=== PATIENT | female | born 2000 | race Caucasian/White ===

== ENCOUNTER 2021-02-04 03:26 | Emergency (ER) | payer OTHER, SELFPAY ==
--- NOTE | ~2021-02-04 | XR_ITS ---
XR shoulder LT min 2V DATE: 02/04/2021 04:16 INDICATION: Fall. Left shoulder pain TECHNIQUE: 5 views COMPARISON: None FINDINGS: No fracture or dislocation, periosteal reaction or bone destruction or abnormal soft tissue calcification. IMPRESSION: Negative Reviewed, dictated and finalized at location A. IMPRESSION: Negative
--- NOTE | ~2021-02-04 | XR_ITS ---
XR knee RT 3V DATE: 02/04/2021 04:15 INDICATION: Fall. Patellar pain. TECHNIQUE: 3 views COMPARISON: None FINDINGS: No fracture or dislocation or joint effusion. Joint spaces are preserved. No radiopaque int ra-articular loose body or chondrocalcinosis. No periosteal reaction or bone destruction. IMPRESSION: Negative Reviewed, dictated and finalized at location A. IMPRESSION: Negative
[2021-02-04 03:38] VITALS: BP 138/77; PULSE 103; RESP 17; TEMP 36.4; O2SAT 100
--- NOTE | 2021-02-04 04:58 | ED.FALL ---
HPI - Fall General Chief Complaint: Fall Stated Complaint: shoulder and knee injury Time Seen by Provider: 02/04/21 03:31 Source: patient History of Present Illness HPI Narrative: Patient presents with left shoulder pain and right knee pain. Patient reports she is picking her up her friends from a bar when she slipped on the wet surface inside the barn she landed on her left arm and right knee. She denies striking her head she denies any loss of consciousness denies any use of blood thinners. Reports pain to her left shoulder and her right knee as areas of pain are achy, constant, worse with using the respective joint. Her shoulder pain does radiate to her her knee pain does not Review of Systems Review of Systems: CONSTITUTIONAL: Denies fever, chills, or sweats. EYES: Denies visual changes, redness, or discharge. ENT: Denies rhinorrhea, congestion, sore throat, or otalgia. CARDIOVASCULAR: Denies chest pain, palpitations, or edema. RESPIRATORY: Denies cough or dyspnea. GASTROINTESTINAL: Denies abdominal pain, nausea, vomiting, or diarrhea. GENITOURINARY: Denies dysuria or hematuria. SKIN: Denies rash or itching. MUSCULOSKELETAL: Denies back pain, or myalgia. NEUROLOGIC: Denies headache, numbness, dizziness, or weakness. PSYCHIATRIC: Denies anxiety or depression. All systems reviewed & are unremarkable except as noted in HPI and below Exam Narrative: GENERAL: Well-appearing, well-nourished, and in no acute distress. HEAD: Normocephalic, atraumatic. EYES: PERRLA and EOMI. ENT: Nares clear, no rhinorrhea or epistaxis. Mucous membranes moist. NECK: Supple. No masses. No JVD no midline neck pain EXTREMITIES: Noted shoulder range of motion in all directions related to pain. Left shoulder has diffuse pain to the joint there is no focal bony tenderness there is no specific tenderness at the AC joint. Patient has less than 2-second cap refill, 5 out of 5 generator repairer strength, sensation intact to light touch in the left hand. Right knee is with tenderness primarily on the kneecap there is no obvious deformity there is no laxity in the knee joint. SKIN: Warm, dry, no rash. NEURO: No focal deficits. Alert and oriented x3. PSYCH: Normal mood and affect. Course Reevaluation(s) Reevaluation #1: Patient resting comfortably imaging reviewed with patient. Patient with outpatient plan. Date: 02/04/21 Vital Signs Vital signs: Vital Signs Temperature 36.4 C 02/04/21 03:38 Pulse Rate 103 H 02/04/21 03:38 Respiratory Rate 17 02/04/21 03:38 Blood Pressure 138/77 02/04/21 03:38 Pulse Oximetry 100 02/04/21 03:38 Temperature 36.4 C 02/04/21 03:38 Pulse Rate 93 02/04/21 05:08 Respiratory Rate 18 02/04/21 05:08 Blood Pressure 111/61 02/04/21 05:08 Pulse Oximetry 99 02/04/21 05:08 MDM - Fall MDM Narrative Medical decision making narrative: H&P as above, vss, pt looks clinically well, exam without major neurovascular compromise or focal bony tenderness, imaging unremarkable, additional labs/img considered. symptomatic relief available as needed, on reevaluation pt continues to looks clinically well. Suspect acute injury, dns fracture, dislocation, major neurovascular compromise. plan to tx/monitor as op w/ pcm f/u findings/plan discussed with pt, pt agree/comfortable with plan, return precautions given Imaging Data Attestation: I personally reviewed and interpreted this imaging study as follows: My impression: No focal bony abnormalities in the left shoulder or right knee plain films Discharge Plan Discharge Clinical Impression: Fall Qualifiers: Encounter type: initial encounter Qualified Code(s): W19.XXXA - Unspecified fall, initial encounter Acute shoulder pain Qualifiers: Laterality: left Qualified Code(s): M25.512 - Pain in left shoulder Acute knee pain Qualifiers: Laterality: left Qualified Code(s): M25.562 - Pain in left knee Contusion Qualifiers: Encounter type: initial encounter Contusion area: knee L
[2021-02-04 05:08] VITALS: BP 111/61; PULSE 93; RESP 18; O2SAT 99
== END 2021-02-04 05:42 | disposition home or self-care (01) ==
LOC: ANHED 05:14
PROVIDERS: Emergency Provider Emergency Medicine
DX: S80.01XA Contusion of right knee, initial encounter (principal); M25.512 Pain in left shoulder; W01.0XXA Fall on same level from slipping, tripping and stumbling without subsequent striking against object, initial encounter
CPT/HCPCS: 73030; 73562; 99284

== ENCOUNTER 2022-07-31 23:11 | Emergency (ER) | payer OTHER, SELFPAY ==
--- NOTE | ~2022-07-31 | XR_ITS ---
EXAMINATION: XR chest 2V DATE: 08/01/2022 00:12 INDICATION: Chest pain and shortness of breath TECHNIQUE: PA and lateral views of the chest are obtained. COMPARISON: None available FINDINGS: The lungs are free of acute opacities. No pleural effusion or pneumothorax. The cardiomedia stinal silhouette is normal. The visualized bones and soft tissues are unremarkable. IMPRESSION: 1. No acute cardiopulmonary abnormality. Reviewed, dictated and finalized at location L.
[2022-07-31 23:27] VITALS: BP 116/68; PULSE 82; RESP 18; TEMP 36.4; O2SAT 98
--- NOTE | 2022-07-31 23:32 | ECG_ITS ---
Measurements Intervals [place] Rate: 76 P: 37 MS: 150 QRS: 27 QRSD: 95 T: 36 QT: 391 QTc: 442 Interpretive Statements SINUS RHYTHM WITH FREQUENT VENTRICULAR PREMATURE COMPLEXES IN A BIGEMINAL PATTERN ABNORMAL RHYTHM ECG NO PREVIOUS ECG AVAILABLE FOR COMPARISON Electronically Signed On 08-01-2022 15:59:47 CDT by Sue Hinson M.D.
[2022-08-01 00:03] LABS: Basophils Percent Auto 0.3 % (0.2-1.2); Hematocrit 39.8 % (37.0-47.0); Hemoglobin 12.3 g/dL (12.0-15.0); Immature Granulocyte Absolute 0.02 K/mm3 (0.00-0.031); Immature Granulocyte Percent A 0.2 % (0-0.5); Lymphocytes Absolute Auto 3.39 K/mm3 (0.9-3.2); Lymphocytes Percent Auto 34.9 % (18.3-44.2); Mean Corpuscular HGB Conc 30.9 g/dl (32-36); Mean Corpuscular Hemoglobin 25.5 pg (26-34); Mean Corpuscular Volume 82.4 fl (80-100); Mean Platelet Volume 10.6 fl (7.4-10.4); Monocytes Absolute Auto 0.7 K/mm3 (0.1-0.6); Monocytes Percent Auto 6.8 % (2.6-8.5); Neutrophils Absolute Auto 5.6 K/mm3 (1.3-6.7); Neutrophils Percent Auto 57.8 % (45.5-73.1); Platelet Count Result 381 k/mm3 (150-375); Red Blood Count 4.83 M/mm3 (4.2-5.4); Red Cell Distribution Width 15.8 % (11.5-14.5); White Blood Count 9.7 K/mm3 (4.5-10.0)
[2022-08-01 00:18] LABS: Alanine Aminotransferase 23 U/L (6-35); Albumin Level 4.3 g/dL (3.5-5.1); Alkaline Phosphatase 71 U/L (38-126); Anion Gap 6 mmol/L (8-16); Aspartate Amino Transferase 23 U/L (14-36); Bilirubin,Total 0.3 mg/dL (0.2-1.3); Blood Urea Nitrogen 13 mg/dL (7-17); Carbon Dioxide 28 mmol/L (22-30); Chloride 105 mmol/L (98-107); Estimated Glomerular Filt Rate > 60; Glucose 124 mg/dL (65-110); Lipase 79 U/L (23-300); Potassium 4.2 mmol/L (3.4-5.0); Sodium 139 mmol/L (137-145)
[2022-08-01 00:23] LABS: INR 1.1; Prothrombin Time 13.4 Seconds (11.1-14.7)
[2022-08-01 00:30] LABS: Troponin I < 0.012 ng/mL (0.000-0.034)
[2022-08-01 02:46] LABS: Appearance Urine Clear (Clear); Bacteria Urine None Seen /hpf; Bilirubin Urine Negative (Negative); Blood Urine 3+ (Negative); Color Urine Yellow (Yellow); Glucose Urine UA Negative (Negative); Ketones Urine Negative (Negative); Leukocyte Esterase Ur Negative LEU/UL (Negative); Nitrate Urine Negative (Negative); Non Pathogenic Casts 0-2; Protein Urine Negative (Negative); Squamous Epithelial Cell Urine None seen /hpf (Few); WBC Urine 0-5 /hpf; pH Urine 6.5 (5.0-9.0)
[2022-08-01 02:48] LABS: Magnesium 2.1 mg/dL (1.6-2.3)
[2022-08-01 02:51] LABS: Add Urine Microscopic? YES
[2022-08-01 03:01] LABS: Troponin I < 0.012 ng/mL (0.000-0.034)
[2022-08-01 04:12] VITALS: BP 137/76; PULSE 84; RESP 18; O2SAT 100
--- NOTE | 2022-08-01 06:49 | PC.NURSE ---
pt brought back to room #11. Gait steady. Changing into a gown
[2022-08-01 06:59] VITALS: BP 102/60; PULSE 77; RESP 20; O2SAT 100
[2022-08-01 07:00] VITALS: PULSE 76
[2022-08-01 07:31] VITALS: BP 112/72; PULSE 79; RESP 22; O2SAT 100
[2022-08-01 08:30] VITALS: BP 110/70; PULSE 75; RESP 27; O2SAT 96
[2022-08-01 08:36] LABS: D Dimer < 0.27 ug/mL (<0.48)
[2022-08-01 08:45] LABS: Troponin I < 0.012 ng/mL (0.000-0.034)
--- NOTE | 2022-08-01 08:57 | ED.CHESTPAIN ---
HPI - Chest Pain General Chief Complaint: Chest Pain Stated Complaint: chest pain Time Seen by Provider: 08/01/22 07:01 Source: patient and RN notes reviewed Mode of arrival: ambulatory Limitations: no limitations History of Present Illness HPI narrative: This is a 21 year old female with history of myocarditis, frequent PVCs who presents for evaluation of chest pain. She reports yesterday she started having intermittent sharp pain and feeling like she was having PVCs. She also reports feeling short of breath with these episodes. She called her clinical program coordinator and recommended coming to ER. She is taking metoprolol and diltiazem for known episodes of PVCs and Bigeminy . She is scheduled for cardiac ablation for her PVC this month. She denies cough, fever, nausea, vomiting. She denies leg swelling or calf pain. She reports having these issues since last November. She had CT Scan of chest in january and MRI of her heart. Review of Systems Constitutional: Constitutional: Denies weakness Cardiovascular: Cardiovascular: Reports chest pain, Denies syncope, Denies rapid heart rate, Reports irregular heart rhythm, Denies leg edema and Reports dyspnea Respiratory: Respiratory: Denies chest congestion, Denies hemoptysis, Denies excessive phlegm production and Denies dyspnea Gastrointestinal: Gastrointestinal: Denies abdominal pain, Denies hematochezia, Denies diarrhea and Denies vomiting Genitourinary: Genitourinary: Denies hematuria and Denies dysuria Musculoskeletal: Musculoskeletal: Denies joint swelling, Denies loss of height and Denies muscle weakness Neurologic: Denies syncope, Denies focal weakness and Denies weakness PMFSH Past Medical History Medical History (Updated 08/01/22 @ 09:09 by Rosa Burns MD) Myocarditis PVC (premature ventricular contraction) Social History Social History (Updated 08/01/22 @ 09:02 by Rosa Burns MD) Smoking status: Never smoker Exam Narrative: GENERAL: Well-appearing, well-nourished, and in no acute distress. HEAD: Normocephalic, atraumatic EYES: PERRLA and EOMI, conjunctiva clear without discharge THROAT:Mucous membranes moist, Oropharynx normal without erythema, exudate, peritonsillar swelling or fluctuance NECK: Supple, without lymphadenopathy or mass RESPIRATORY: No respiratory distress, Airway patent, Respirations non-labored, Clear to auscultation without rales, rhonchi or wheeze HEART: Regular rate and rhythm. No murmur heard. Normal peripheral pulses. ABDOMEN: Soft, nontender, nondistended, normal active bowel sounds. No masses. No rebound or guarding, No organomegaly. EXTREMITIES: No edema, normal strength with full range of motion. SKIN: Warm, dry, normal color without rash NEURO: Alert and oriented x3. CN 2-12 grossly intact. No focal deficits. PSYCH: Normal mood and affect. Chest: Chest palpation & inspection: tenderness sternum Neuro: Speech: No Abnormal speech present Course Reevaluation(s) Reevaluation #1: I discussed with patient that troponin and d dimer is negative. She is having PVCs, no VTach seen on monitor. She will follow up with clinical program coordinator Date: 08/01/22 Time: 09:04 Vital Signs Vital signs: Vital Signs Temperature 97.6 F 07/31/22 23:27 Pulse Rate 82 07/31/22 23:27 Respiratory Rate 18 07/31/22 23:27 Blood Pressure 116/68 07/31/22 23:27 Pulse Oximetry 98 07/31/22 23:27 Temperature 97.6 F 07/31/22 23:27 Pulse Rate 74 08/01/22 09:16 Respiratory Rate 16 08/01/22 09:16 Blood Pressure 110/80 08/01/22 09:16 Pulse Oximetry 96 08/01/22 09:16 MDM - Chest Pain MDM Narrative Medical decision making narrative: Patient has known bigeminy .on arrival she had bigeminy but now seems to be having infrequent PVCs. labs unnremarkable other than UA with microscopic hematuria that is unrelated, troponin negative x 2, electrolytes normal. d dimer negative She is stable for outpatient follow up. D
[2022-08-01 09:16] VITALS: BP 110/80; PULSE 74; RESP 16; O2SAT 96
== END 2022-08-01 09:16 | disposition home or self-care (01) ==
PROVIDERS: Emergency Medicine; Emergency Provider General Practice; PCP Family Medicine Sports Medicine
DX: R07.89 Other chest pain (principal); I49.3 Ventricular premature depolarization
CPT/HCPCS: 36415; 71046; 80053; 81001; 83690; 83735; 84484; 85025; 85380; 85610; 85730; 93005; 99284

== ENCOUNTER 2022-12-04 15:16 | Outpatient (CLI) | payer OTHER, SELFPAY ==
--- NOTE | ~2022-12-04 | US_ITS ---
EXAMINATION: US breast RT limited HISTORY: Palpable lump in the upper inner quadrant of the right breast TECHNIQUE: Limited right breast ultrasound performed. FINDINGS: There is no evidence of focal abnormal cystic or solid mass in the vicinity of the reported palpable abnormality of the right breast. IMPRESSION: No specific sonographic correlate is identified for the reported palpable abnormality of concern. Fur ther evaluation at this time should be based on clinical assessment. Continued follow-up physical exa mination is recommended. BI-RADS Category 1: Negative Reviewed, dictated and finalized at location A. IMPRESSION: No specific sonographic correlate is identified for the reported palpable abnor mality of concern. Further evaluation at this time should be based on clinical assessment. Continued follow-up physical examination is recommended. BI-RADS Category 1: Negative
== END 2022-12-04 15:17 | disposition home or self-care (01) ==
LOC: ANHIMG 15:20
DX: N63.12 Unspecified lump in the right breast, upper inner quadrant (principal); Z97.5 Presence of (intrauterine) contraceptive device
CPT/HCPCS: 76642

== ENCOUNTER 2023-03-29 14:21 | Inpatient (IN) | payer OTHER, SELFPAY ==
--- NOTE | ~2023-03-29 | US_ITS ---
EXAMINATION: US retroperitoneal duplex ltd DATE: 04/03/2023 08:57 BOW MAKER GIFT WRAPPING INDICATION: Hypertension TECHNIQUE: Multiple grayscale, color Doppler, and pulsed Doppler images of the kidneys and renal johnnie jordyn were obtained. COMPARISON: None. FINDINGS: The aorta peak systolic velocity is 213 cm/s. The right renal artery peak systolic velocity is 99 cm/ s in the proximal segment, 167 cm/s in the mid segment, 107 cm/s in the distal segment. The left richard l artery peak systolic velocity is 68 cm/s in the proximal segment, 88 cm/s in the mid segment, 68 cm /s in the distal segment. The renal artery/aorta systolic ratio on the right is 0.8 and on the left is 0.4. Notes: renal artery stenosis is >=180-200 cm/s or >3.5:1 ratio of renal artery velocity to aorta. Thi s correlates with >50-60% stenosis. IMPRESSION: 1. No Doppler evidence of renal artery stenosis. Reviewed, dictated and finalized at location D. MAKER GIFT WRAPPING
--- NOTE | ~2023-03-29 | MR_ITS ---
MRI of the thoracic spine Clinical History: Paresthesias Technique: Axial T2-weighted and gradient images, and sagittal T1-weighted, T2-weighted, and STIR esequiel ges were acquired. Following intravenous administration of 20 cc MultiHance gadolinium, T1-weighted f at-sat imaging was performed in the axial and sagittal planes. Findings: There is no fracture or subluxation of the thoracic spine. Vertebral bodies maintain normal height and alignment. No focal bone marrow signal abnormality seen. Intervertebral discs are well preserved throughout the thoracic spine. No disc bulge or herniation se en at any level. No spinal canal stenosis or cord compression identified. No epidural mass or collect ion seen. No abnormal signal seen in the spinal cord. Paravertebral soft tissues are unremarkable. No abnormal postcontrast enhancement identified. Impression: Unremarkable exam. Reviewed, dictated and finalized at [facility]. LE TREE STITCHER Impression: Unremarkable exam.
--- NOTE | ~2023-03-29 | XR_ITS ---
EXAMINATION: XR injection blood patch w img DATE: 04/02/2023 13:03 INDICATION: Postlumbar puncture headache TECHNIQUE: The procedure including the risks and benefits was discussed with the patient. Risks discu ssed included spinal headache, cerebrospinal fluid leak, bleeding, and infection. The patient underst ood the risks and agreed to proceed. A timeout was performed to verify the patient's name, date of , and procedure to be performed. The skin overlying the L2-L3 level was prepped and draped in usual sterile fashion. Subcutaneous 1% lidocaine was used for local anesthesia. A 20 gauge spinal n eedle was advanced under fluoroscopic guidance and with loss of resistance technique. There was no sp ontaneous efflux of CSF fluid. 1 mL of Omnipaque 300 contrast was injected in the frontal fluoroscopi c image and crosstable lateral radiograph were obtained confirming epidural position of the needle ti p with no intrathecal contrast. 8 mL of the patient's own blood was collected from an IV and injected into the epidural space during which time the patient remained asymptomatic. The needle was removed and the entry site was cleaned and dressed. There were no immediate complications. Fluoroscopy exposu re time was 0.2 minutes. A total of 3 fluoroscopic images and one radiograph are obtained. Total DAP was 18 Gycm^2. FINDINGS: Real-time fluoroscopy demonstrates the needle tip and small amount of injected contrast in the epidural space at the L2-L3 level. IMPRESSION: 1. Successful fluoro-guided lumbar blood patch in the epidural space at L2-L3. Reviewed, dictated and finalized at location A. OMER TRAINING SPECIALIST
--- NOTE | ~2023-03-29 | MR_ITS ---
MRI of the brain Clinical History: Headache, vision changes Technique: Axial and sagittal T1-weighted images were acquired. These were followed by axial T2-weigh jeanne, diffusion weighted, gradient, and FLAIR images. Findings: No abnormal signal seen in the brain parenchyma. No acute infarct, intracranial hemorrhage, mass lesion. Ventricles and subarachnoid spaces are unremarkable. Orbits are unremarkable. Paranasal sinuses and m astoid air cells are clear. Major intracranial flow voids appear intact. Sagittal midline structures are intact. IMPRESSION: Unremarkable exam. Reviewed, dictated and finalized at location M. TENER IMPRESSION: Unremarkable exam.
--- NOTE | ~2023-03-29 | MR_ITS ---
MRI of the lumbar spine Clinical History: Paresthesias Technique: Axial T2-weighted images, and sagittal T1-weighted, T2-weighted, and T2 fat-sat images wer e acquired. Following intravenous administration of 20 cc MultiHance gadolinium, T1-weighted fat-sat imaging was performed in the axial and sagittal planes. Findings: There is no fracture or subluxation of the lumbar spine. Vertebral bodies maintain normal h eight and alignment. No focal bone marrow signal abnormality seen. At L1-L2, L2-L3, L3-L4, intervertebral discs maintain normal signal and position. No disc bulge or he rniation at these levels. No spinal canal stenosis or neural foraminal narrowing at these levels. At L4-L5, there is mild central disc protrusion with tiny annular fissure. No spinal canal stenosis o r neural foraminal narrowing. At L5-S1, there is mild central disc protrusion with probable tiny annular fissure. No spinal canal s tenosis or neural foraminal narrowing. Paravertebral soft tissues are unremarkable. No abnormal postcontrast enhancement identified. Impression: Mild degenerative disc change at L4-L5 and L5-S1, as detailed above. Reviewed, dictated and finalized at location . OPERATIONS SUPERVISOR Impression: Mild degenerative disc change at L4-L5 and L5-S1, as detailed above.
--- NOTE | ~2023-03-29 | MR_ITS ---
MR Venogram of the Brain Clinical Indication: Headache, vision changes Technique MR venogram was done using coronal 2D time of flight technique. Findings: The superior sagittal sinus appears normal. Probable flow artifact at the junction of the b ilateral transverse and sigmoid sinuses rather than thrombosis. Bilateral transverse and sigmoid sinu ses are otherwise unremarkable. The internal cerebral veins, vein of Sen and straight sinus are pat ent. Impression: No evidence of venous sinus thrombosis. Reviewed, dictated and finalized at location . BASKET MAKER Impression: No evidence of venous sinus thrombosis.
--- NOTE | ~2023-03-29 | XR_ITS ---
EXAMINATION: XR lumbar puncture diagnostic DATE: 03/30/2023 14:15 INDICATION: Papilledema. TECHNIQUE: The procedure including the risks, benefits, and alternatives was discussed with the patie nt. Risks discussed included spinal headache, bleeding, and infection. The patient understood the ris ks and agreed to proceed. A timeout was performed to verify the patient's name, date of , and procedure to be performed. The skin overlying the L2-L3 level was prepped and draped in usual steri le fashion. Subcutaneous 1% lidocaine was used for local anesthesia. A 20 gauge spinal needle was a dvanced under fluoroscopic guidance. The needle was removed and the entry site was cleaned and dresse d. There were no immediate complications. Fluoroscopy exposure time was 0.1 minutes. The total numbe r of images was 1. FINDINGS: Real-time fluoroscopy demonstrates the needle at the L2-L3 level. The opening pressure was 29 cm water (Normal range is variably defined as 6-20 cm water and up to 25 cm water in obese patient s. Pressure >25 cm water is one of the modified Dandy criteria for idiopathic intracranial hypertensi on). 14 mL of clear, colorless fluid was collected in 4 tubes. IMPRESSION: 1. Successful fluoro-guided lumbar puncture. 2. Elevated opening pressure measuring 29 cm water. Reviewed, dictated and finalized at location A. EL ATTENDANT
--- NOTE | ~2023-03-29 | CT_ITS ---
EXAMINATION: CTA BRAIN/CAROTID DATE: 03/29/2023 18:38 INDICATION: Lytic, vision changes and optic disc swelling TECHNIQUE: Computed tomographic angiography (CTA) of the head and neck was performed with 100 mL Omni paque-350 intravenous contrast. Multiplanar reconstructions and maximum intensity projection 3D-recon structions of the carotid arteries and of the intracranial arteries were created by the technologist on a separate workstation. Precontrast CT of the head was also obtained. Automated exposure control and iterative reconstruction technique were employed.The dose-length product was 1832.13 mGy-cm. COMPARISON: None. FINDINGS: Carotid arteries: Visualized aortic arch and great vessels arising from the arch are normal in caliber with no evident atherosclerotic plaque or dissection. Left vertebral artery is dominant. There is no evident atherosc lerotic plaque with 0% stenosis of the right and left carotid bulbs relative to normal distal artery lumen diameter (NASCET criteria). Cervical soft tissues are unremarkable. Likely positional mild reve rsal of the normal cervical lordosis. Head: No acute intracranial hemorrhage, acute infarction or abnormal extra axial fluid collection. Ventricl es are normal and symmetric. No mass/mass effect. The orbits, paranasal sinuses and mastoid air cells are normal. No abnormally enhancing brain lesions on postcontrast imaging. Intracranial arteries There is no hemodynamically significant stenosis in the vertebral, basilar and internal carotid arter ies. Left vertebral artery is dominant. There are no aneurysms identified. Both A1 and P1 segments a re patent. There is also a patent anterior communicating artery and bilateral posterior communicating arteries. Cerebral arterial arborization appears symmetric. IMPRESSION: 1. No evident atherosclerotic plaque with 0% stenosis of the right and left carotid bulbs relative to normal distal artery lumen diameter (NASCET criteria). 2. Normal brain and CT angiogram of the cerebral arteries. Reviewed, dictated and finalized at location A. N MARKETING SPECIALIST IMPRESSION: 1. No evident atherosclerotic plaque with 0% stenosis of the right and left car otid bulbs relative to normal distal artery lumen diameter (NASCET criteria). 2. Normal brain and CT angiogram of the cerebral arteries.
[2023-03-29 14:31] VITALS: BP 143/99; PULSE 100; RESP 16; TEMP 36.9; O2SAT 100
[2023-03-29 17:58] LABS: Basophils Percent Auto 0.3 % (0.2-1.2); Hematocrit 37.6 % (37.0-47.0); Hemoglobin 10.9 g/dL (12.0-15.0); Immature Granulocyte Absolute 0.04 K/mm3 (0.00-0.031); Immature Granulocyte Percent A 0.4 % (0-0.5); Lymphocytes Absolute Auto 2.77 K/mm3 (0.9-3.2); Lymphocytes Percent Auto 26.9 % (18.3-44.2); Mean Corpuscular Hemoglobin 22.7 pg (26-34); Mean Corpuscular Volume 78.3 fl (80-100); Mean Platelet Volume 10.8 fl (7.4-10.4); Monocytes Absolute Auto 0.8 K/mm3 (0.1-0.6); Monocytes Percent Auto 7.8 % (2.6-8.5); Neutrophils Absolute Auto 6.6 K/mm3 (1.3-6.7); Neutrophils Percent Auto 64.6 % (45.5-73.1); Platelet Count Result 489 k/mm3 (150-375); Red Cell Distribution Width 14.6 % (11.5-14.5); White Blood Count 10.3 K/mm3 (4.5-10.0)
[2023-03-29 18:10] LABS: Alanine Aminotransferase 48 U/L (6-35); Albumin Level 4.3 g/dL (3.5-5.1); Alkaline Phosphatase 80 U/L (38-126); Anion Gap 11 mmol/L (8-16); Aspartate Amino Transferase 42 U/L (14-36); Bilirubin,Total 0.3 mg/dL (0.2-1.3); Blood Urea Nitrogen 10 mg/dL (7-17); Calcium 9.3 mg/dL (8.4-10.2); Carbon Dioxide 25 mmol/L (22-30); Chloride 104 mmol/L (98-107); Estimated CRCL calculation 160 ml/min; Estimated Glomerular Filt Rate > 60; Glucose 96 mg/dL (65-110); Potassium 4.1 mmol/L (3.4-5.0); Sodium 140 mmol/L (137-145)
[2023-03-29 18:24] LABS: Hypochromasia 1+ (NORMAL); Ovalocytes 1+ (NORMAL); Platelet Estimate Increased (Adequate); Schistocytes None Seen (NORMAL)
--- NOTE | 2023-03-29 18:28 | ED.NEUROSD ---
HPI - Neuro Symptoms/Deficit General Chief Complaint: Neuro Symptoms/Deficit Stated Complaint: VISUAL CHANGES X3WKS Time Seen by Provider: 03/29/23 17:02 Source: patient Mode of arrival: ambulatory Limitations: no limitations History of Present Illness HPI Narrative: Patient is a 22 y/o female who presents to the ED with c/o vision changes. Patient reports having intermittent vision changes over the last 3 weeks. She describes it as though her vision is tunneling and out. She at times experiences headaches/pressure and tinnitus with the vision changes. She states symptoms have become progressively more frequent each day. Occurring multiple times per hour. She has seen her lithographic artist in her hometown and was told she had swelling of her optic nerve. She was referred to have a CT scan of her brain and carotids, but was unable to schedule this for 2 more weeks. Patient reports ongoing vision changes throughout my evaluation. Denies numbness or weakness in extremities, confusion, slurred speech, dizziness, lightheadedness. Related Data Home Medications Medication Instructions Recorded Confirmed diltiazem HCl 60 mg tablet 60 mg PO BID 03/29/23 03/29/23 escitalopram oxalate 10 mg tablet 10 mg PO DAILY 03/29/23 03/29/23 (Lexapro) itraconazole 100 mg capsule 100 mg PO DAILY 03/29/23 03/29/23 itraconazole 200 mg tablet 200 mg PO BID 03/29/23 03/29/23 metoprolol succinate 50 mg 50 mg PO BID 03/29/23 03/29/23 tablet,extended release 24 hr Allergies Allergy/AdvReac Type Severity Reaction Status Date / Time No Known Allergies Allergy Verified 03/30/23 02:01 Review of Systems Review of Systems: CONSTITUTIONAL: Denies fever, chills, or sweats. EENT: See HPI. CARDIOVASCULAR: Denies chest pain, palpitations, or edema. RESPIRATORY: Denies cough or dyspnea. GASTROINTESTINAL: Denies abdominal pain, nausea, vomiting. MUSCULOSKELETAL: Denies back pain, joint pain, or myalgia. NEUROLOGIC: See HPI. All systems reviewed & are unremarkable except as noted in HPI and below PMFSH Past Medical History Medical History Myocarditis PVC (premature ventricular contraction) Social History Social History Smoking status: Never smoker Alcohol intake: current Drinks per week: 2 Substance use: never Lack of Transportation: No Lack of Food: Never True Current Housing: I Have Housing Concerned About Future Housing: No Difficulty Paying Gas/Electric Bills: No Difficulty Paying for Meds: No Currently Unemployed: No Education: Master's Degree or Higher Difficulty w/ Childcare or Family Care: No Spiritual care concerns: No Exam Narrative: GENERAL: Well appearing, morbidly obese with BMI 49.3, non-toxic, in no acute distress. HEAD: Normocephalic, atraumatic. EYES: PERRL/EOMI though patient darting eyes left and right at times during extraocular movement evaluation. Conjunctiva clear mat. No nystagmus. NECK: Supple. No adenopathy, no masses. No meningeal signs. RESPIRATORY: Airway patent, respirations nonlabored. Clear to auscultation bilaterally, no rales, rhonchi, wheezing. CARDIOVASCULAR: Regular rate and rhythm without murmurs, rubs, or gallops. Radial pulses 2+ and equal bilaterally. MUSCULOSKELETAL: Moves all extremities. Strength/ROM intact without gross deformities. SKIN: Warm, dry, normal color. No rashes. NEURO: A&O X3. Speech clear. Cranial nerves II-XII grossly intact. Steady gait. No ataxic movements. Strength 5/5 in upper and lower extremities bilaterally. No pronator drift. Equal ota strength bilaterally. PSYCHIATRIC: Appropriate mood and affect. Normal interaction. Course Vital Signs Vital signs: Vital Signs Temperature 98.5 F 03/29/23 14:31 Pulse Rate 100 03/29/23 14:31 Respiratory Rate 16 03/29/23 14:31 Blood Pressure 143/99 H 03/29/23 14:31
--- NOTE | 2023-03-29 20:34 | PM.IMHP ---
H&P: HPI History of Present Illness Date/Time: 03/29/23 20:34 Chief Complaint: Vision changes Narrative: This is a 22-year-old female with past medical history significant for morbid obesity, hypertension. Patient presents to the emergency room due to vision changes, diplopia, tunnel vision, occipital headache pressure-like known name and tingling of bilateral upper extremities mainly at the hands bilaterally. Patient denies any focal weakness, no urinary retention. Noticed this changes in the last few weeks or so had been evaluated in the outpatient setting with CT of the head which was normal and had appointment for MRI of the brain coming up however noticed that these episodes have increased in frequency. Was also evaluated by ophthalmology and was noticed to have optic nerve edema. Denies loss of consciousness, denies fevers rigors chills, nausea, had 1 episode of projectile vomiting. Preliminary workup has been essentially nonrevealing. EXAMINATION: CTA BRAIN/CAROTID DATE: 03/29/2023 18:38 INDICATION: Lytic, vision changes and optic disc swelling TECHNIQUE: Computed tomographic angiography (CTA) of the head and neck was performed with 100 mL Omnipaque-350 intravenous contrast. Multiplanar reconstructions and maximum intensity projection 3D-reconstructions of the carotid arteries and of the intracranial arteries were created by the technologist on a separate workstation. Precontrast CT of the head was also obtained.? Automated exposure control and iterative reconstruction technique were employed.The dose-length product was 1832.13 mGy-cm. COMPARISON: None. ? FINDINGS: Carotid arteries: Visualized aortic arch and great vessels arising from the arch are normal in caliber with no evident atherosclerotic plaque or dissection. Left vertebral artery is dominant. There is no evident atherosclerotic plaque with 0% stenosis of the right and left carotid bulbs relative to normal distal artery lumen diameter (NASCET criteria). Cervical soft tissues are unremarkable. Likely positional mild reversal of the normal cervical lordosis. Head: No acute intracranial hemorrhage, acute infarction or abnormal extra axial fluid collection. Ventricles are normal and symmetric. No mass/mass effect. The orbits, paranasal sinuses and mastoid air cells are normal. No abnormally enhancing brain lesions on postcontrast imaging. Intracranial arteries There is no hemodynamically significant stenosis in the vertebral, basilar and internal carotid arteries. Left vertebral artery is dominant. There are no aneurysms identified.? Both A1 and P1 segments are patent. There is also a patent anterior communicating artery and bilateral posterior communicating arteries. Cerebral arterial arborization appears symmetric. IMPRESSION: 1. No evident atherosclerotic plaque with 0% stenosis of the right and left carotid bulbs relative to normal distal artery lumen diameter (NASCET criteria). 2. Normal brain and CT angiogram of the cerebral arteries. Review of Systems Review of Systems: Diplopia, occipital headache pressure-like, known in tingling bilateral upper extremity mainly hands, tunnel vision Constitutional: Constitutional: Denies chills, Denies fatigue, Denies fever(s), Denies malaise, Denies night sweats, Denies poor appetite, Denies weakness and Denies weight gain Eyes: Eyes: Reports change in vision, Reports diplopia and Reports loss of peripheral vision ENT: Denies dysphagia, Denies vertigo, Denies dizziness and Denies odynophagia Cardiovascular: Cardiovascular: Denies chest pain, Denies radiating jaw, neck or arm pain and Denies palpitations Respiratory: Respiratory: Denies cough and Denies dyspnea Gastrointestinal: Gastrointestinal: Denies abdominal pain, Denies dyspepsia, Denies heartburn, Denies diarrhea, Denies nausea and Reports vomiting (Projectile x once) Genitourinary: Genitourinary: Denies urinary frequency and Denies dysuria Musculoskeletal:
[2023-03-29 21:29] VITALS: BP 143/82; PULSE 88; RESP 18; O2SAT 98
--- NOTE | 2023-03-29 22:26 | ADMGEN ---
This patient, Vivian Billy, was admitted to [facility] Surg Room 324-01. Patient/family oriented to hospital policies and general routines including ID bracelet, bed and alarms, visiting hours, pain management, procedures, bathroom and other care routines, personal items, smoking policy, room service/diet, and visiting hours. Information on how to activate the Rapid Response Team has been discussed. Patient/Family are encouraged to report perceived risks to care and to ask questions if they do not understand what they are told or what they should do.
[2023-03-29 22:28] VITALS: BMI 49.0
[2023-03-29 22:50] VITALS: BP 138/93; PULSE 93; RESP 16; TEMP 36.3; O2SAT 97
[2023-03-30 04:15] VITALS: BP 106/81; PULSE 80; RESP 16; TEMP 36.5; O2SAT 97
[2023-03-30 06:00] VITALS: BP 122/65; PULSE 73; RESP 18; TEMP 35.8; O2SAT 97
--- NOTE | 2023-03-30 11:37 | PM.IMPN ---
Progress Note: A&P Assessment and Plan (1) Persistent headaches: Code(s): R51.9 - Headache, unspecified Status: Acute Assessment and Plan: Place in observation MRI of the brain pending Neurology consult ordered and pending (2) Visual changes: Code(s): H53.9 - Unspecified visual disturbance Status: Acute Assessment and Plan: MRI of the brain in the morning (3) Morbid obesity with BMI of 45.0-49.9, adult: Code(s): E66.01 - Morbid (severe) obesity due to excess calories; Z68.42 - Body mass index [BMI] 45.0-49.9, adult Status: Acute Assessment and Plan: Lifestyle and diet modifications Plan DVT prophylaxis with SCDs GI prophylaxis not indicated Code status full code Subjective Date/time seen: 03/30/23 11:37 Interval history: 22-year-old female with past medical history significant for high blood pressure is presenting to the ER with headache, vision changes in bilateral upper extremity numbness, tingling and is currently being worked up by Neurology. No overnight events noted. No chest pain or shortness of breath. No nausea, vomiting or diarrhea. No fevers or chills. Review of Systems Review of Systems: 12 point review of systems was assessed and was negative except as noted in the HPI Exam Narrative: General: No acute distress, alert and oriented per baseline HEENT: Atraumatic, normocephalic, mucous membranes moist CV: Regular rate and rhythm, S1, S2 Lungs: Clear to auscultation bilaterally, no rales or crackles noted, no wheezes, good air entry Abdomen: Soft, nontender, nondistended Extremities: Normal to inspection Skin: No rashes noted, no lesions or wounds seen Psych: Euthymic, normal affect Objective Data Vital Signs Vital Signs: Vital Signs - 24 hr 03/29/23 14:31 03/29/23 21:29 03/29/23 22:50 Temperature 98.5 F 97.3 F L Pulse Rate 100 88 93 Respiratory Rate 16 18 16 Blood Pressure 143/99 H 143/82 H 138/93 H Pulse Oximetry 100 98 97 Oxygen Delivery Room Air 03/30/23 06:00 03/30/23 08:00 Temperature 96.5 F L Pulse Rate 73 Respiratory Rate 18 Blood Pressure 122/65 Pulse Oximetry 97 Oxygen Delivery Room Air Meds/Results Medications: Active Medications Generic Name Dose Route Start Last Admin Trade Name Dread PRN Reason Stop Dose Admin Acetaminophen 650 mg 03/29/23 20:41 Acetaminophen 325 Mg Tablet PO Q4H PRN Mild Pain (1-3) or Fever Radiology Results: ITS Impressions Head/Neck CTA 03/29/23 18:49 IMPRESSION: 1. No evident atherosclerotic plaque with 0% stenosis of the right and left carotid bulbs relative to normal distal artery lumen diameter (NASCET criteria). 2. Normal brain and CT angiogram of the cerebral arteries. Brain MRI 03/30/23 08:24 IMPRESSION: Unremarkable exam. Head/Brain Mag Res Venography 03/30/23 08:25 Impression: No evidence of venous sinus thrombosis. Labs Labs: Laboratory Results - last 24 hr 03/29/23 17:39 WBC 10.3 H RBC 4.80 Hgb 10.9 L Hct 37.6 MCV 78.3 L MCH 22.7 L MCHC 29.0 L RDW 14.6 H Plt Count 489 H MPV 10.8 H Immature Gran % (Auto) 0.4 Neut % (Auto) 64.6 Lymph % (Auto) 26.9 [place] % (Auto) 7.8 Eos % (Auto) 0.0 Baso % (Auto) 0.3 Lymph # (Auto) 2.77 [place] # (Auto) 0.8 H Eos # (Auto) 0.0 Baso # (Auto) 0.0 Abs Immat Gran (auto) 0.04 H Absolute Neuts (auto) 6.6 Absolute Nucleated RBC 0.0 Nucleated RBC % 0.0 Platelet Estimate Increased Hypochromasia 1+ Ovalocytes 1+ Schistocytes None seen Sodium 140 Potassium 4.1 Chloride 104 Carbon Dioxide 25 Anion Gap 11 BUN 10 Creatinine 0.70 Estim Creat Clear Calc 160 Estimated GFR > 60 Glucose 96 Calcium 9.3 Total Bilirubin 0.3 AST 42 H ALT 48 H Alkaline Phosphatase 80 Total Protein 8.0 Albumin 4.3
--- NOTE | 2023-03-30 11:58 | WPDNEURCNPN ---
Assessment and Plan Assessment and plan (1) Persistent headaches: Code(s): R51.9 - Headache, unspecified Status: Acute (2) Visual changes: Code(s): H53.9 - Unspecified visual disturbance Status: Acute (3) Morbid obesity with BMI of 45.0-49.9, adult: Code(s): E66.01 - Morbid (severe) obesity due to excess calories; Z68.42 - Body mass index [BMI] 45.0-49.9, adult Status: Acute Plan Ms. Billy is a 22 year old female with a history of obesity presenting with headache, double vision, tinnitus in the setting of papilledema. MRI/MRV of the brain are normal. Concern for idiopathic intracranial hypertension. - Proceed with LP with opening pressure - Assuming opening pressure is elevated, after LP will start Diamox - Will need follow-up in [facility] clinic after discharge with follow-up eye exam Consult date: 03/30/23 Reason for consult: Papilledema HPI: Vivian Billy is a 22 year old female with a history of myocarditis and obesity presenting for evaluation of papilledma. Patient reports having vision changes that started about three weeks ago. She first had tunnel vision, and more recently developed double vision as well. Headaches came after the vision changes -- which she describes as pressure like, occipital in location. Due to the vision changes, patient presented to eye doctor yesterday who found that she has swelling of the optic discs and asked her to go to [place] ED. She had initial CT head and CTA which were unrevealing. MRI brain and MRV brain were normal this morning. LP has not been done yet for opening pressure. Patient continues to report the same vision concerns of tunnel vision and double vision, but also ringing in the ears. She is not on any antibiotics, OCP, or vitamin A derivatives. Review of Systems Review of Systems: All systems reviewed & are unremarkable except as noted in HPI and below PMFSH Past Medical History Medical History Myocarditis PVC (premature ventricular contraction) Social History Social History Smoking status: Never smoker Alcohol intake: current Drinks per week: 2 Substance use: never Lack of Transportation: No Lack of Food: Never True Current Housing: I Have Housing Concerned About Future Housing: No Difficulty Paying Gas/Electric Bills: No Difficulty Paying for Meds: No Currently Unemployed: No Education: Master's Degree or Higher Difficulty w/ Childcare or Family Care: No Spiritual care concerns: No Meds Home Medications and Allergies Home Medications Medication Instructions Recorded Confirmed Type diltiazem HCl 60 mg tablet 60 mg PO BID 03/29/23 03/29/23 History escitalopram oxalate 10 mg tablet 10 mg PO DAILY 03/29/23 03/29/23 History (Lexapro) itraconazole 100 mg capsule 100 mg PO DAILY 03/29/23 03/29/23 History itraconazole 200 mg tablet 200 mg PO BID 03/29/23 03/29/23 History metoprolol succinate 50 mg 50 mg PO BID 03/29/23 03/29/23 History tablet,extended release 24 hr Allergies Allergy/AdvReac Type Severity Reaction Status Date / Time No Known Allergies Allergy Verified 03/30/23 02:01 Vital Signs Vital Signs - 24 hr 03/29/23 14:31 03/29/23 21:29 03/29/23 22:50 Temperature 36.9 C 36.3 C L Pulse Rate 100 88 93 Respiratory Rate 16 18 16 Blood Pressure 143/99 H 143/82 H 138/93 H Pulse Oximetry 100 98 97 Oxygen Delivery Room Air 03/30/23 06:00 03/30/23 08:00 Temperature 35.8 C L Pulse Rate 73 Respiratory Rate 18 Blood Pressure 122/65 Pulse Oximetry 97 Oxygen Delivery Room Air Exam Const: General: comfortable and no acute distress HENMT: Mouth: Yes moist mucous membranes Eyes: Pupils: Equal, round and reactive pupils present Other: subtle L abducens palsy Resp: Effort & Inspection: normal respiratory effort Skin: General skin exam:
[2023-03-30 12:53] LABS: Prothrombin Time 13.7 Seconds (11.1-14.7)
[2023-03-30 12:54] LABS: Partial Thromboplastin Time 27.9 SECONDS (22.3-36.8)
[2023-03-30 14:16] VITALS: BP 137/85; PULSE 87; RESP 22; O2SAT 97
[2023-03-30 14:17] VITALS: BP 107/75; PULSE 71; RESP 22; O2SAT 98
[2023-03-30] MEDS: ESCITALOPRAM OXALATE 10 MG TABLET PO (14:18)
[2023-03-30] MEDS: ACETAMINOPHEN 325 MG TABLET 650 MG PO ×2 (14:18→20:13)
[2023-03-30 14:48] LABS: Glucose CSF 62 mg/dL (40-70); Total Protein CSF 21 mg/dL (12-60)
[2023-03-30 16:44] LABS: Appearance CSF Clear (Clear); CSF source CSF; Color CSF Colorless (Colorless); Nucleated Cell CSF 2 /uL (0-5); Red Blood Cell CSF 1.1 (0-2)
[2023-03-30 16:45] LABS: Lymphocytes CSF 84 % (40-80); Monocytes CSF 16 % (15-45)
[2023-03-30 20:12] VITALS: PULSE 78
[2023-03-30] MEDS: dilTIAZem HCL 60 MG TABLET PO (20:12)
[2023-03-30] MEDS: METOPROLOL SUCCINATE EXT REL 50 MG TABCR PO (20:12)
[2023-03-30 21:18] VITALS: BP 156/95; PULSE 83; RESP 14; TEMP 36.1; O2SAT 97
[2023-03-31] VITALS (7 sets, daily range): BP systolic 113–150; BP diastolic 64–76; PULSE 53–60; RESP 14–18; TEMP 35.6–36.8; O2SAT 99–100
[2023-03-31] MEDS: dilTIAZem HCL 60 MG TABLET PO ×2 (09:26→20:19)
[2023-03-31] MEDS: ACETAMINOPHEN 325 MG TABLET 650 MG PO (09:26)
[2023-03-31] MEDS: METOPROLOL SUCCINATE EXT REL 50 MG TABCR PO ×2 (09:27→20:20)
[2023-03-31] MEDS: ESCITALOPRAM OXALATE 10 MG TABLET PO (09:27)
--- NOTE | 2023-03-31 11:42 | PC.NURSE ---
Patient c/o headache feeling different from before; feels more frontal and is sharp and constant. Notified neurology (Dr. Phillip) of change in condition. Encouraged patient to lie flat; encouraged increased fluid intake. Orders for Diamox received following LP results.
[2023-03-31] MEDS: acetaZOLAMIDE TAB 250 MG TABLET PO ×2 (12:03→20:20)
--- NOTE | 2023-03-31 13:59 | PM.IMPN ---
Progress Note: A&P Assessment and Plan (1) Persistent headaches: Code(s): R51.9 - Headache, unspecified Status: Acute Assessment and Plan: Suspected pseudotumor cerebri based on LP results, appreciate neurology consultation, Diamox given Now with possible spinal headache, supportive care, normal saline bolus x1 (2) Visual changes: Code(s): H53.9 - Unspecified visual disturbance Status: Acute Assessment and Plan: see above (3) Morbid obesity with BMI of 45.0-49.9, adult: Code(s): E66.01 - Morbid (severe) obesity due to excess calories; Z68.42 - Body mass index [BMI] 45.0-49.9, adult Status: Acute Assessment and Plan: Lifestyle and diet modifications Plan DVT prophylaxis with SCDs GI prophylaxis not indicated Code status full code Subjective Date/time seen: 03/31/23 13:59 Interval history: 22-year-old female with past medical history significant for high blood pressure is presenting to the ER with headache, vision changes in bilateral upper extremity numbness, tingling and is currently being worked up by Neurology. No overnight events noted. No chest pain or shortness of breath. No nausea, vomiting or diarrhea. No fevers or chills. Patient with notable headache after the spinal tap. Review of Systems Review of Systems: 12 point review of systems was assessed and was negative except as noted in the HPI Exam Narrative: General: No acute distress, alert and oriented per baseline HEENT: Atraumatic, normocephalic, mucous membranes moist CV: Regular rate and rhythm, S1, S2 Lungs: Clear to auscultation bilaterally, no rales or crackles noted, no wheezes, good air entry Abdomen: Soft, nontender, nondistended Extremities: Normal to inspection Skin: No rashes noted, no lesions or wounds seen Psych: Euthymic, normal affect Objective Data Vital Signs Vital Signs: Vital Signs - 24 hr 03/30/23 14:16 03/30/23 14:17 03/30/23 20:12 Temperature Pulse Rate 87 71 78 Respiratory Rate 22 H 22 H Blood Pressure 137/85 107/75 Pulse Oximetry 97 98 Oxygen Delivery 03/30/23 21:18 03/30/23 20:00 03/31/23 05:58 Temperature 97.0 F L 96.0 F L Pulse Rate 83 60 Respiratory Rate 14 16 Blood Pressure 156/95 H 113/76 Pulse Oximetry 97 99 Oxygen Delivery Room Air 03/31/23 09:27 Temperature Pulse Rate 60 Respiratory Rate Blood Pressure Pulse Oximetry Oxygen Delivery Intake/Output Intake/Output: Intake & Output 03/28/23 03/29/23 03/30/23 03/31/23 23:59 23:59 23:59 23:59 Intake Total 892 840 Balance 892 840 Meds/Results Medications: Active Medications Generic Name Dose Route Start Last Admin Trade Name Freq PRN Reason Stop Dose Admin Acetaminophen 650 mg 03/30/23 12:40 03/31/23 09:26 Acetaminophen 325 Mg Tablet PO 650 mg Q4H PRN Administration Mild Pain (1-3) or Fever Acetazolamide 250 mg 03/31/23 12:00 03/31/23 12:03 Acetazolamide Tab 250 Mg Tablet PO 250 mg Q12HR AGUSTIN Administration Diltiazem HCl 60 mg 03/30/23 21:00 03/31/23 09:26 Diltiazem Hcl 60 Mg Tablet PO 60 mg Q12HR AGUSTIN Administration Escitalopram Oxalate 10 mg 03/30/23 12:40 03/31/23 09:27 Escitalopram Oxalate 10 Mg Tablet PO 10 mg DAILY AGUSTIN Administration Metoprolol Succinate 50 mg 03/30/23 21:00 03/31/23 09:27 Metoprolol Succinate Ext Rel 50 Mg Tabcr PO 50 mg Q12HR AGUSTIN Administration Radiology Results: ITS Impressions Head/Neck CTA 03/29/23 18:49 IMPRESSION: 1. No evident atherosclerotic plaque with 0% stenosis of the right and left carotid bulbs relative to normal distal artery lumen diameter (NASCET criteria). 2. Normal brain and CT angiogram of the cerebral arteries. Brain MRI 03/30/23 08:24 IMPRESSION: Unremarkable exam. Head/Brain Mag Res Venography 03/30/23 08:25 Impression: No evidence of venous sinus thrombosis.
[2023-03-31] MEDS: SODIUM CHLORIDE 0.9% IV 1,000 ML 999 ML IV CONT (15:30)
--- NOTE | 2023-03-31 15:58 | WPDNEURCNPN ---
Consult date: 03/31/23 HPI: Vivian Billy is a 22 year old femaleAdmitted to the hospital for the complaints of severe headache with dizziness diplopia and findings of papilledema on clinical examination raising the possibility of EEG pathic intracranial hypertension his studies revealed normal CBC and hepatic enzymes, negative MRI of the brain, negative CTA of the brain and neck, negative MRV of the brain lumbar puncture with the opening pressure of 29, patient is receiving Diamox 250mg q.12 hours and is on strict bedrest at particular time advised her to stay in the hospital to avoid the post spinal tap aggravation of the headache when she is stable she can be discharged with intention to increase the Diamox [id number] q.12 hours. All the pros and cons of the investigations discussed with her with diagnosis of pseudotumor cerebri PMFSH Past Medical History Medical History Myocarditis PVC (premature ventricular contraction) Social History Social History Smoking status: Never smoker Alcohol intake: current Drinks per week: 2 Substance use: never Lack of Transportation: No Lack of Food: Never True Current Housing: I Have Housing Concerned About Future Housing: No Difficulty Paying Gas/Electric Bills: No Difficulty Paying for Meds: No Currently Unemployed: No Education: Master's Degree or Higher Difficulty w/ Childcare or Family Care: No Spiritual care concerns: No Meds Home Medications and Allergies Home Medications Medication Instructions Recorded Confirmed Type diltiazem HCl 60 mg tablet 60 mg PO BID 03/29/23 03/29/23 History escitalopram oxalate 10 mg tablet 10 mg PO DAILY 03/29/23 03/29/23 History (Lexapro) itraconazole 100 mg capsule 100 mg PO DAILY 03/29/23 03/29/23 History itraconazole 200 mg tablet 200 mg PO BID 03/29/23 03/29/23 History metoprolol succinate 50 mg 50 mg PO BID 03/29/23 03/29/23 History tablet,extended release 24 hr Allergies Allergy/AdvReac Type Severity Reaction Status Date / Time No Known Allergies Allergy Verified 03/30/23 02:01 Vital Signs Vital Signs - 24 hr 03/30/23 20:12 03/30/23 21:18 03/30/23 20:00 Temperature 36.1 C L Pulse Rate 78 83 Respiratory Rate 14 Blood Pressure 156/95 H Pulse Oximetry 97 Oxygen Delivery Room Air 03/31/23 05:58 03/31/23 09:27 03/31/23 14:00 Temperature 35.6 C L 36.6 C Pulse Rate 60 60 56 L Respiratory Rate 16 14 Blood Pressure 113/76 129/74 Pulse Oximetry 99 99 Oxygen Delivery Results Labs 03/29/23 17:39 03/29/23 17:39
[2023-04-01 06:00] VITALS: BP 147/58; PULSE 71; RESP 20; TEMP 36.8; O2SAT 99
[2023-04-01] MEDS: ACETAMINOPHEN 325 MG TABLET 650 MG PO ×2 (08:16→15:57)
[2023-04-01 08:20] VITALS: PULSE 50
[2023-04-01] MEDS: ESCITALOPRAM OXALATE 10 MG TABLET PO (08:22)
[2023-04-01] MEDS: acetaZOLAMIDE TAB 250 MG TABLET PO (08:22)
--- NOTE | 2023-04-01 13:11 | PM.IMPN ---
Progress Note: A&P Assessment and Plan (1) Persistent headaches: Code(s): R51.9 - Headache, unspecified Status: Acute Assessment and Plan: Suspected pseudotumor cerebri based on LP results, appreciate neurology consultation, Diamox given Now with possible spinal headache, supportive care, normal saline bolus x1 04/01: unchanged, in procedure today per neuro (2) Visual changes: Code(s): H53.9 - Unspecified visual disturbance Status: Acute Assessment and Plan: see above (3) Morbid obesity with BMI of 45.0-49.9, adult: Code(s): E66.01 - Morbid (severe) obesity due to excess calories; Z68.42 - Body mass index [BMI] 45.0-49.9, adult Status: Acute Assessment and Plan: Lifestyle and diet modifications Plan DVT prophylaxis with SCDs GI prophylaxis not indicated Code status full code Subjective Date/time seen: 04/01/23 13:11 Interval history: 22-year-old female with past medical history significant for high blood pressure is presenting to the ER with headache, vision changes in bilateral upper extremity numbness, tingling and is currently being worked up by Neurology. In procedure, discussed with family, patient is unchanged today, no events Review of Systems Review of Systems: 12 point review of systems was assessed and was negative except as noted in the HPI Exam Narrative: in procedure Objective Data Vital Signs Vital Signs: Vital Signs - 24 hr 03/31/23 14:00 03/31/23 20:00 03/31/23 20:20 Temperature 97.8 F Pulse Rate 56 L 53 L Respiratory Rate 14 Blood Pressure 129/74 Pulse Oximetry 99 99 Oxygen Delivery Room Air 03/31/23 20:25 03/31/23 22:18 04/01/23 06:00 Temperature 97.5 F L 98.2 F 98.2 F Pulse Rate 53 L 56 L 71 Respiratory Rate 16 18 20 Blood Pressure 113/64 150/70 H 147/58 H Pulse Oximetry 100 99 99 Oxygen Delivery 04/01/23 08:20 Temperature Pulse Rate 50 L Respiratory Rate Blood Pressure Pulse Oximetry Oxygen Delivery Intake/Output Intake/Output: Intake & Output 03/29/23 03/30/23 03/31/23 04/01/23 23:59 23:59 23:59 23:59 Intake Total 892 2630 590 Balance 892 2630 590 Meds/Results Medications: Active Medications Generic Name Dose Route Start Last Admin Trade Name Richq PRN Reason Stop Dose Admin Acetaminophen 650 mg 03/30/23 12:40 04/01/23 08:16 Acetaminophen 325 Mg Tablet PO 650 mg Q4H PRN Administration Mild Pain (1-3) or Fever Acetazolamide 250 mg 03/31/23 12:00 04/01/23 08:22 Acetazolamide Tab 250 Mg Tablet PO 250 mg Q12HR AGUSTIN Administration Diltiazem HCl 60 mg 03/30/23 21:00 04/01/23 08:20 Diltiazem Hcl 60 Mg Tablet PO Not Given Q12HR AGUSTIN Escitalopram Oxalate 10 mg 03/30/23 12:40 04/01/23 08:22 Escitalopram Oxalate 10 Mg Tablet PO 10 mg DAILY AGUSTIN Administration Metoprolol Succinate 50 mg 03/30/23 21:00 04/01/23 08:20 Metoprolol Succinate Ext Rel 50 Mg Tabcr PO Not Given Q12HR AGUSTIN Radiology Results: ITS Impressions Head/Neck CTA 03/29/23 18:49 IMPRESSION: 1. No evident atherosclerotic plaque with 0% stenosis of the right and left carotid bulbs relative to normal distal artery lumen diameter (NASCET criteria). 2. Normal brain and CT angiogram of the cerebral arteries. Brain MRI 03/30/23 08:24 IMPRESSION: Unremarkable exam. Head/Brain Mag Res Venography 03/30/23 08:25 Impression: No evidence of venous sinus thrombosis. Lumbar Puncture Fluoroscopy 03/30/23 14:32 IMPRESSION: 1. Successful fluoro-guided lumbar puncture. 2. Elevated opening pressure measuring 29 cm water.
[2023-04-01 14:00] VITALS: BP 105/57; PULSE 60; RESP 16; TEMP 36.7; O2SAT 98
--- NOTE | 2023-04-01 19:00 | PC.NURSE ---
Patient reported vision changes at 1545, stated my vision went black momentarily, now it is 'in and out.' Patient also c/o headache during this assessment, tylenol given, with little improvement upon follow up. Patient requested something different for pain management, hospitalist notified and referred to neurology for appropriate pain management orders. Left message with neurology, no answer for new orders at this time.
[2023-04-01 20:05] VITALS: BP 145/74; PULSE 75; RESP 16; TEMP 36.2; O2SAT 100
[2023-04-01 20:26] VITALS: PULSE 54
[2023-04-01] MEDS: METOPROLOL SUCCINATE EXT REL 50 MG TABCR PO (20:26)
[2023-04-01] MEDS: dilTIAZem HCL 60 MG TABLET PO (20:26)
[2023-04-01] MEDS: acetaZOLAMIDE TAB 250 MG TABLET 500 MG PO (20:26)
[2023-04-01] MEDS: ACETAMINOPHEN/CODEINE (*CRX) 300/30 MG TABLET 1 TAB PO (20:29)
[2023-04-01] MEDS: ONDANSETRON INJ 4 MG/2 ML VIAL IV PUSH (20:30)
[2023-04-02] VITALS (8 sets, daily range): BP systolic 100–132; BP diastolic 50–68; PULSE 56–67; RESP 14–18; TEMP 36.2–36.3; O2SAT 97–100
[2023-04-02] MEDS: ACETAMINOPHEN/CODEINE (*CRX) 300/30 MG TABLET 1 TAB PO ×4 (02:03→21:09)
[2023-04-02] MEDS: ACETAMINOPHEN/BUTALBITAL/CAFFEINE 325-50-40 MG TABLET (FIORICET) 1 TAB PO (03:12)
[2023-04-02] MEDS: HYDROmorphone HCL INJ (*CRX) 1 MG/ML SYR 2 MG IM (06:37)
--- NOTE | 2023-04-02 08:33 | P.DS_ITS ---
DS: Admitting Diagnosis Discharge Date 04/02/23 Admitting Diagnosis vision changes/ MATT DS: Discharge Diagnosis Discharge Diagnosis (1) Persistent headaches: Code(s): R51.9 - Headache, unspecified Status: Acute Assessment and Plan: Suspected pseudotumor cerebri based on LP results, appreciate neurology consultation, Diamox given Now with possible spinal headache, supportive care, normal saline bolus x1 04/01: unchanged, in procedure today per neuro (2) Visual changes: Code(s): H53.9 - Unspecified visual disturbance Status: Acute Assessment and Plan: see above (3) Morbid obesity with BMI of 45.0-49.9, adult: Code(s): E66.01 - Morbid (severe) obesity due to excess calories; Z68.42 - Body mass index [BMI] 45.0-49.9, adult Status: Acute Assessment and Plan: Lifestyle and diet modifications Plan DVT prophylaxis with SCDs GI prophylaxis not indicated Code status full code DS: Summary Hospital Course Hospital Course: 22-year-old female with history of obesity, hypertension presenting with vision changes and headache, found to have pseudotumor cerebri. Symptoms responded to Diamox and she was discharged in stable condition with close outpatient follow- up by Neurology in family medicine. Please see above and med rec for details. Time Spent with Patient Time attestation: Total time spent providing and/or coordinating discharge services: Exam Narrative: General: No acute distress, alert and oriented per baseline HEENT: Atraumatic, normocephalic, mucous membranes moist CV: Regular rate and rhythm, S1, S2 Lungs: Clear to auscultation bilaterally, no rales or crackles noted, no wheezes, good air entry Abdomen: Soft, nontender, nondistended Extremities: Normal to inspection Skin: No rashes noted, no lesions or wounds seen Psych: Euthymic, normal affect Discharge Plan Discharge Attending physician on discharge: Kristan Humphreys Consulting providers: Esther Sim; Jasmina De La Cruz Discharging Clinician: Kristan Humphreys Patient Disposition: Home, Self-Care Activity: as tolerated Diet: as tolerated Patient Instructions: Antibiotic Form, Lumbar Puncture (DC) Stand Alone Forms: General Discharge Information Follow-up/Referrals: Mery Billy [Other] Esther Sim MD [Physician] - Discharge Medications: New acetazolamide 250 mg Tablet 500 mg PO Q12HR 30 Days Qty: 120 0RF Continued metoprolol succinate 50 mg Tablet Extended Release 24 Hr 50 mg PO BID diltiazem HCl 60 mg Tablet 60 mg PO BID escitalopram oxalate [Lexapro] 10 mg Tablet 10 mg PO DAILY Discontinued itraconazole 100 mg Capsule 100 mg PO DAILY Rx Instructions: must administer with a meal/food itraconazole 200 mg Tablet 200 mg PO BID Rx Instructions: must administer with a meal/food Date of admission: 03/31/23 12:57 Primary Care Provider: Mery Billy Admitting Provider: Emy Olivas V. Attending physician on admission: Emy Olivas V. Condition: Stable
[2023-04-02] MEDS: acetaZOLAMIDE TAB 250 MG TABLET 500 MG PO ×3 (09:53→16:57)
[2023-04-02] MEDS: dilTIAZem HCL 60 MG TABLET PO ×2 (09:53→20:02)
[2023-04-02] MEDS: ESCITALOPRAM OXALATE 10 MG TABLET PO (09:54)
--- NOTE | 2023-04-02 10:27 | WPDNEUROPN ---
Progress Note: A&P Assessment and Plan (1) Persistent headaches: Code(s): R51.9 - Headache, unspecified Status: Acute (2) Visual changes: Code(s): H53.9 - Unspecified visual disturbance Status: Acute (3) Morbid obesity with BMI of 45.0-49.9, adult: Code(s): E66.01 - Morbid (severe) obesity due to excess calories; Z68.42 - Body mass index [BMI] 45.0-49.9, adult Status: Acute (4) IIH (idiopathic intracranial hypertension): Code(s): G93.2 - Benign intracranial hypertension Status: Acute Plan Ms. Billy is a 22 year old female with a history of obesity presenting with headache, double vision, tinnitus in the setting of papilledema. MRI/MRV of the brain are normal. LP with elevated opening pressure. Consistent with IIH. Course has been complicated by orthostatic headaches, likely post-LP related, but patient also complaining of persistent double vision and tinnitus which may be more related to IIH. - Increase Diamox to 500mg TID - Blood patch today - Will need follow-up in [facility] Neurology clinic after discharge with follow-up eye exam Subjective Date/time seen: 04/02/23 10:27 Interval history: Vivian Billy is a 22 year old female with a history of myocarditis and obesity presenting for evaluation of papilledma. Patient reports having vision changes that started about three weeks ago. She first had tunnel vision, and more recently developed double vision as well. Headaches came after the vision changes -- which she describes as pressure like, occipital in location. Due to the vision changes, patient presented to eye doctor yesterday who found that she has swelling of the optic discs and asked her to go to [place] ED. She had initial CT head and CTA which were unrevealing. MRI brain and MRV brain were normal this morning. LP has not been done yet for opening pressure. Patient continues to report the same vision concerns of tunnel vision and double vision, but also ringing in the ears. She is not on any antibiotics, OCP, or vitamin A derivatives. LP with opening pressure of 29. She was started on Diamox, titrated to 500mg BID. Initially after LP she felt better in terms of vision and headache, but last night headache became more severe, exacerbated by sitting up or standing up, better when laying down. Review of Systems Review of Systems: All systems reviewed & are unremarkable except as noted in HPI and below Exam Const: General: comfortable and no acute distress HENMT: Mouth: Yes moist mucous membranes Eyes: Pupils: Equal, round and reactive pupils present EOM: EOMs intact bilaterally Resp: Effort & Inspection: normal respiratory effort Skin: General skin exam: normal color Neuro: Other: Pupils equal and reactive bilaterally, EOMI, face symmetric, facial sensation intact, tongue protrudes midline, palate midline. Shoulder shrug normal. Strength 5/5 throughout. Sensation intact throughout. FNF normal bilaterally. Language comprehension and fluency intact. Gait deferred. Extrem: General: normal to inspection Psych: Mental Status: mental status grossly normal Affect: normal affect Objective Data Vital Signs Vital Signs: Vital Signs - 24 hr 04/01/23 14:00 04/01/23 20:26 04/01/23 20:05 Temperature 36.7 C 36.2 C L Pulse Rate 60 54 L 75 Respiratory Rate 16 16 Blood Pressure 105/57 L 145/74 H Pulse Oximetry 98 100 Oxygen Delivery 04/01/23 20:00 04/02/23 04:11 04/02/23 10:00 Temperature 36.3 C L Pulse Rate 58 L 62 Respiratory Rate 16 14 Blood Pressure 108/60 115/50 L Pulse Oximetry 100 100 Oxygen Delivery Room Air 04/02/23 10:02 Temperature Pulse Rate 62 Respiratory Rate Blood Pressure Pulse Oximetry Oxygen Delivery Intake/Output Intake/Output: Intake & Output 03/30/23 03/31/23 04/01/23 04/02/23 23:59 23:59 23:59 23:59 Intake Total 892 2630 1010 200 Balance 892 2630 1010 200 Meds/Results Medicatio
--- NOTE | 2023-04-02 16:26 | PM.IMPN ---
Progress Note: A&P Assessment and Plan (1) Persistent headaches: Code(s): R51.9 - Headache, unspecified Status: Acute Assessment and Plan: Suspected pseudotumor cerebri based on LP results, appreciate neurology consultation, Diamox given Now with possible spinal headache, supportive care, normal saline bolus x1 04/01: unchanged, in procedure today per neuro 04/02: blood patch performed for spinal headache today, diamox increased (2) Visual changes: Code(s): H53.9 - Unspecified visual disturbance Status: Acute Assessment and Plan: see above (3) Morbid obesity with BMI of 45.0-49.9, adult: Code(s): E66.01 - Morbid (severe) obesity due to excess calories; Z68.42 - Body mass index [BMI] 45.0-49.9, adult Status: Acute Assessment and Plan: Lifestyle and diet modifications Plan DVT prophylaxis with SCDs GI prophylaxis not indicated Code status full code Subjective Date/time seen: 04/02/23 16:26 Interval history: 22-year-old female with past medical history significant for high blood pressure is presenting to the ER with headache, vision changes in bilateral upper extremity numbness, tingling and is currently being worked up by Neurology. Blood patch performed today. No overnight events, c/o MATT. No fevers. Review of Systems Review of Systems: 12 point review of systems was assessed and was negative except as noted in the HPI Exam Narrative: General: No acute distress, alert and oriented per baseline HEENT: Atraumatic, normocephalic, mucous membranes moist CV: Regular rate and rhythm, S1, S2 Lungs: Clear to auscultation bilaterally, no rales or crackles noted, no wheezes, good air entry Abdomen: Soft, nontender, nondistended Extremities: Normal to inspection Skin: No rashes noted, no lesions or wounds seen Psych: Euthymic, normal affect Objective Data Vital Signs Vital Signs: Vital Signs - 24 hr 04/01/23 20:26 04/01/23 20:05 04/01/23 20:00 Temperature 97.1 F L Pulse Rate 54 L 75 Respiratory Rate 16 Blood Pressure 145/74 H Pulse Oximetry 100 Oxygen Delivery Room Air 04/02/23 04:11 04/02/23 10:00 04/02/23 10:02 Temperature 97.3 F L Pulse Rate 58 L 62 62 Respiratory Rate 16 14 Blood Pressure 108/60 115/50 L Pulse Oximetry 100 100 Oxygen Delivery 04/02/23 12:54 04/02/23 12:56 04/02/23 14:00 Temperature 97.1 F L Pulse Rate 56 L 61 57 L Respiratory Rate 16 16 14 Blood Pressure 100/58 L 122/66 121/64 Pulse Oximetry 98 97 98 Oxygen Delivery Intake/Output Intake/Output: Intake & Output 03/30/23 03/31/23 04/01/23 04/02/23 23:59 23:59 23:59 23:59 Intake Total 892 2630 1010 318 Balance 892 2630 1010 318 Meds/Results Medications: Active Medications Generic Name Dose Route Start Last Admin Trade Name Freq PRN Reason Stop Dose Admin Acetaminophen 650 mg 03/30/23 12:40 04/01/23 15:57 Acetaminophen 325 Mg Tablet PO 650 mg Q4H PRN Administration Mild Pain (1-3) or Fever Acetaminophen/Codeine Phosphate 1 tab 04/01/23 19:45 04/02/23 12:57 Acetaminophen/Codeine (*Crx) 300/30 Mg Tablet PO 1 tab Q4H PRN Administration Pain Rated 4-6 Acetazolamide 500 mg 04/02/23 13:00 04/02/23 12:57 Acetazolamide Tab 250 Mg Tablet PO 500 mg TID AGUSTIN Administration Diltiazem HCl 60 mg 03/30/23 21:00 04/02/23 09:53 Diltiazem Hcl 60 Mg Tablet PO 60 mg Q12HR AGUSTIN Administration Escitalopram Oxalate 10 mg 03/30/23 12:40 04/02/23 09:54 Escitalopram Oxalate 10 Mg Tablet PO 10 mg DAILY AGUSTIN Administration Metoprolol Succinate 50 mg 03/30/23 21:00 04/02/23 10:02 Metoprolol Succinate Ext Rel 50 Mg Tabcr PO Not Given Q12HR AGUSTIN Ondansetron HCl 4 mg 04/01/23 19:45 04/01/23 20:30 Ondansetron Inj 4 Mg/2 Ml Vial IV PUSH 4 mg Q4H PRN Administration Nausea And Vomiting Radiology Results: ITS Impressions Head/
[2023-04-02] MEDS: METOPROLOL SUCCINATE EXT REL 50 MG TABCR PO (20:02)
[2023-04-03 06:00] VITALS: BP 96/60; PULSE 58; RESP 18; TEMP 36.1; O2SAT 97
[2023-04-03] MEDS: ACETAMINOPHEN/CODEINE (*CRX) 300/30 MG TABLET 1 TAB PO ×2 (06:20→09:58)
[2023-04-03] MEDS: dilTIAZem HCL 60 MG TABLET PO (09:58)
[2023-04-03] MEDS: ESCITALOPRAM OXALATE 10 MG TABLET PO (09:58)
[2023-04-03] MEDS: acetaZOLAMIDE TAB 250 MG TABLET 500 MG PO (09:59)
--- NOTE | 2023-04-03 11:12 | PM.DS ---
DS: Admitting Diagnosis Discharge Date 04/03/23 Admitting Diagnosis headache DS: Discharge Diagnosis Discharge Diagnosis (1) Persistent headaches: Code(s): R51.9 - Headache, unspecified Status: Acute Assessment and Plan: Suspected pseudotumor cerebri based on LP results, appreciate neurology consultation, Diamox given Now with possible spinal headache, supportive care, normal saline bolus x1 04/01: unchanged, in procedure today per neuro 04/02: blood patch performed for spinal headache today, diamox increased (2) Visual changes: Code(s): H53.9 - Unspecified visual disturbance Status: Acute Assessment and Plan: see above (3) Morbid obesity with BMI of 45.0-49.9, adult: Code(s): E66.01 - Morbid (severe) obesity due to excess calories; Z68.42 - Body mass index [BMI] 45.0-49.9, adult Status: Acute Assessment and Plan: Lifestyle and diet modifications Plan DVT prophylaxis with SCDs GI prophylaxis not indicated Code status full code DS: Summary Hospital Course Hospital Course: 22-year-old female with past medical history significant for high blood pressure is presenting to the ER with headache, vision changes in bilateral upper extremity numbness, tingling and is currently being worked up by Neurology. Patient noted to have elevated opening pressure on LP consistent with IIH/pseudotumor cerebri. Diamox 500 mg twice daily, blood patch. And symptoms improved and she was discharged in stable condition with close outpatient follow-up by family medicine as well as Neurology. Please see above and med rec for details. Time Spent with Patient Time attestation: Total time spent providing and/or coordinating discharge services: Discharge Plan Discharge Attending physician on discharge: Kristan Humphreys Consulting providers: Esther Sim; Jasmina De La Cruz Discharging Clinician: Kristan Humphreys Patient Disposition: Home, Self-Care Activity: as tolerated Diet: as tolerated Patient Instructions: Antibiotic Form, Lumbar Puncture (DC) Stand Alone Forms: General Discharge Information, Work/School Release IP Follow-up/Referrals: Mery Billy [Other] Esther Sim MD [Physician] - Discharge Medications: New acetazolamide 250 mg Tablet 500 mg PO Q12HR 30 Days Qty: 120 0RF acetaminophen-codeine 300-30 mg Tablet 1 tablet PO Q4H PRN (Reason: Pain Rated 4-6) Qty: 20 0RF Continued metoprolol succinate 50 mg Tablet Extended Release 24 Hr 50 mg PO BID diltiazem HCl 60 mg Tablet 60 mg PO BID escitalopram oxalate [Lexapro] 10 mg Tablet 10 mg PO DAILY Discontinued itraconazole 100 mg Capsule 100 mg PO DAILY Rx Instructions: must administer with a meal/food itraconazole 200 mg Tablet 200 mg PO BID Rx Instructions: must administer with a meal/food Date of admission: 03/31/23 12:57 Primary Care Provider: Mery Billy Admitting Provider: Emy Olivas V. Attending physician on admission: Emy Olivas V. Condition: Stable
--- NOTE | 2023-04-03 13:08 | PC.NURSE ---
Neurology confirmed Diamox to be taken BID at home and not TID.
--- NOTE | 2023-04-08 14:55 | PC.NURSE ---
Patient called with questions regarding discharge instructions. All questions answered.
== END 2023-04-03 13:32 | disposition home or self-care (01) | DRG 103 ==
LOC: ANHED 19:51 → ANH3MEDSUR 21:48
PROVIDERS: Student in an Organized Health Care Education/Training Program; Admitting Provider Internal Medicine; Emergency Provider Physician Assistant; Visit Provider Student in an Organized Health Care Education/Training Program
DX: G93.2 Benign intracranial hypertension (principal); Z68.42 Body mass index [BMI] 45.0-49.9, adult; R51.9 Headache, unspecified; H53.9 Unspecified visual disturbance; G97.1 Other reaction to spinal and lumbar puncture; E66.01 Morbid (severe) obesity due to excess calories; I49.3 Ventricular premature depolarization
CPT/HCPCS: 36415; 62273; 62328; 70496; 70498; 70544; 70551; 72157; 72158; 77003; 80053; 82945; 84157; 85025; 85610; 85730; 87070; 89051; 93976; 99285; A9270; A9577; G0378; J1170; J2405; J7030; Q9967

== ENCOUNTER 2023-04-25 18:35 | Emergency (ER) | payer OTHER, SELFPAY ==
[2023-04-25 18:38] VITALS: BP 149/96; PULSE 102; RESP 18; TEMP 36.9; O2SAT 100
--- NOTE | 2023-04-25 19:18 | PC.NURSE ---
Pt to the desk stating she spoke with her doctor's office on the phone and will be going to a different facility. A&Ox4. No distress.
== END 2023-04-25 19:18 | disposition left against medical advice (07) ==
LOC: ANHED 19:20
PROVIDERS: PCP Student in an Organized Health Care Education/Training Program
DX: Z53.21 Procedure and treatment not carried out due to patient leaving prior to being seen by health care provider (principal)
CPT/HCPCS: 99199

== ENCOUNTER 2023-05-15 05:47 | Outpatient (CLI) | payer OTHER, SELFPAY ==
[2023-05-08 15:23] VITALS: BMI 48.5
--- NOTE | 2023-05-08 15:23 | PC.NURSE ---
Pre Radiology instructions Report to the outpatient [facility] on date 05/15/23 at time 0700 for procedure Time: 0900. YOU MAY BE MONITORED AT HOSPITAL FOR UP TO 4 HOURS AFTER YOUR PROCEDURE. A visitor will be allowed to accompany the patient into the hospital. You and your visitor will be asked to self-screen and do not enter if you have any COVID symptoms. A mask is OPTIONAL within the hospital. Patients are to have no food or drink 6 hours prior to procedure time Driving will be restricted after the procedure, you must have a person to drive you home. Labs will be drawn in preop area and once reviewed, you will be taken to radiology area for procedure. When the procedure is completed, you will be taken to outpatient where you will be monitored for several hours. You may have one visitor in this area. Other than holding anti-coagulants, patient may take other medication(s) as scheduled. Prior to your appointment date patients are instructed to hold anti-coagulants after discussing with ordering provider to stop. If unable to discontinue anti-coagulants please notify radiologist. ? No aspirin or warfarin (Coumadin) for 7 days prior to the procedure. ? No clopidogrel (Plavix), ticagrelor (Brilinta), prasugrel (Effient) or dabigatran (Pradaxa) for 5 days prior to the procedure. ? No rivaroxaban (Xarelto), apixaban (Eliquis), dipyridamole (Aggrenox or Persantine) or cilostazol (Pletal) for 2 days prior to the procedure. Medications to discontinue per physician: N/A Date to take last dose: N/A Please leave all valuables, including medications, at home the day of procedure. The hospital will not accept responsibility for valuables. Wear comfortable, loose fitting clothing.? Follow any additional instructions given to you from ordering provider. Telephone instructions given to WILIAN SAINI and asked if any additional questions and then verbalized understanding. Patient advised to call scheduling provider office or registration scheduling [phone] if any additional questions.
--- NOTE | ~2023-05-15 | XR_ITS ---
EXAMINATION: XR lumbar puncture diagnostic DATE: 05/15/2023 09:48 INDICATION: Increased intracranial pressure. TECHNIQUE: The procedure including the risks and benefits was discussed with the patient. Risks discu ssed included spinal headache, cerebrospinal fluid leak, bleeding, and infection. The patient underst ood the risks and agreed to proceed. A timeout was performed to verify the patient's name, date of , and procedure to be performed. The skin overlying the L2-L3 level was prepped and draped in usual sterile fashion. Subcutaneous 1% lidocaine was used for local anesthesia. A 5 inch 22 gauge s claudia needle was advanced under fluoroscopic guidance. The needle was removed and the entry site was cleaned and dressed. There were no immediate complications. A total of 3 fluoroscopic image(s) and o ne crosstable lateral radiograph were obtained. The amount of fluoroscopy time used during this proce dure was 0.2 minutes. Total DAP was 24.678 Gycm^2 The patient was taken to the nursing area for obse rvation. FINDINGS: Real-time fluoroscopy demonstrates the needle at the L2-L3 level. Opening pressure was 31. (Normal range is variably defined as 6-20 cm water and up to 25 cm water in obese patients. Pressure >25 cm water is one of the modified Dandy criteria for idiopathic intracranial hypertension). 10.5 mL of clear, colorless fluid was collected in 4 tubes. Closing pressure was 18 cm water. IMPRESSION: 1. Successful fluoro-guided lumbar puncture with elevated opening pressure of 31 cm water. Reviewed, dictated and finalized at location A. [employer] IMPRESSION: 1. Successful fluoro-guided lumbar puncture with elevated opening pressure of 3 1 cm water.
[2023-05-15 07:52] VITALS: BP 124/80; PULSE 80; RESP 16; TEMP 36.4; O2SAT 99
[2023-05-15 07:53] LABS: Mean Platelet Volume 10.3 fl (7.4-10.4); Platelet Count Result 400 k/mm3 (150-375)
[2023-05-15 09:40] VITALS: BP 102/56; PULSE 62; RESP 16; O2SAT 99
[2023-05-15 09:54] LABS: Glucose CSF 68 mg/dL (40-70); Total Protein CSF 36 mg/dL (12-60)
[2023-05-15 10:09] LABS: Appearance CSF Clear (Clear); CSF source CSF; Color CSF Colorless (Colorless); Nucleated Cell CSF 1 /uL (0-5); Red Blood Cell CSF 1 (0-2)
[2023-05-15 10:11] LABS: Lymphocytes CSF 88 % (40-80); Monocytes CSF 12 % (15-45)
[2023-05-15 10:20] VITALS: BP 106/54; PULSE 60; RESP 16
[2023-05-15 10:50] VITALS: BP 107/54; PULSE 64
[2023-05-15 11:25] VITALS: BP 112/55; PULSE 60
== END 2023-05-15 11:50 | disposition home or self-care (01) ==
PROVIDERS: Visit Provider Radiology Diagnostic Radiology
PROC: 009U3ZZ Drainage of Spinal Canal, Percutaneous Approach (ICD-10-PCS; CPT 62328; principal; 2023-05-15 09:00)
DX: G93.2 Benign intracranial hypertension (principal); D72.820 Lymphocytosis (symptomatic)
CPT/HCPCS: 36415; 62328; 82945; 84157; 85049; 85610; 87070; 88108; 89051